=== PATIENT | female | born 1975 | race Caucasian/White ===

== ENCOUNTER 2018-01-06 21:02 | Emergency (ER) | payer MEDICAID ==
[~2018-01-06] VITALS: Ht 152.4 cm; Wt 64.0 kg
[2018-01-07] MEDS ORDERED: MORPHINE SULFATE 4 MG/ML CPJ (NOT FOR IM USE) IV STA (01:45)
[2018-01-07] MEDS ORDERED: DIPHENHYDRAMINE 50MG/ML VIAL IV STA (01:45)
[2018-01-07 02:31] LABS: CLARITY URINE CLEAR (CLEAR); COLOR URINE YELLOW (YELLOW); KETONES URINE NEGATIVE (NEGATIVE); LEUKOCYTE ESTERASE URINE NEGATIVE (NEGATIVE); NITRITE URINE NEGATIVE (NEGATIVE); OCCULT BLOOD URINE NEGATIVE (NEGATIVE); PH URINE 7.5 (4.5-8.0); PROTEIN URINE NEGATIVE (NEGATIVE); SPECIFIC GRAVITY URINE 1.019 (1.005-1.030)
[2018-01-07 02:31] LABS: BASOPHILS % 0.8 % (0.0-2.0); EOSINOPHILS % 2.3 % (0.0-5.0); HEMOGLOBIN. 14.8 g/dL (12.0-16.0); LYMPHOCYTES % 25.6 % (20.0-50.0); MEAN CORPUSCULAR HEMOGLOBIN 32.2 pg (28.0-32.0); MEAN CORPUSCULAR VOLUME 93.1 fL (81.0-99.0); MEAN PLATELET VOLUME 9.5 fl (7.4-10.4); NEUTROPHILS % 64.3 % (40.0-76.0); PLATELET 232 x1000/uL (130-400); RED BLOOD CELL COUNT 4.61 mill/uL (4.2-5.4); RED CELL DISTRIBUTION WIDTH 12.4 % (11.6-14.6)
[2018-01-07 02:36] LABS: CHLORIDE 110 mEq/L (98-107)
[2018-01-07 02:40] LABS: ETHANOL BLOOD < 10 mg/dL
[2018-01-07 02:43] LABS: *AMPHETAMINES SCREEN URINE NEGATIVE (NEGATIVE); *BARBITURATES SCREEN URINE NEGATIVE (NEGATIVE); *BENZODIAZEPINES SCREEN URINE NEGATIVE (NEGATIVE); *COCAINE SCREEN URINE NEGATIVE (NEGATIVE); METHADONE URINE SCREEN NEGATIVE (NEGATIVE)
[2018-01-07 02:44] LABS: CANNABINOID URINE SCREEN NEGATIVE (NEGATIVE); OPIATES URINE SCREEN NEGATIVE (NEGATIVE); PHENCYCLIDINE URINE SCREEN NEGATIVE (NEGATIVE)
[2018-01-07 05:37] VITALS: BP 105/70
== END 2018-01-07 06:24 | disposition home or self-care (01) ==
LOC: ER 23:46
DX: M54.9 Dorsalgia, unspecified (principal); Z79.899 Other long term (current) drug therapy
CPT/HCPCS: 36415; 72131; 80053; 80305; 81003; 83690; 85025; 85610; 96374; 96375; 99285; G0482; J1200; J2270; Z7610

== ENCOUNTER 2018-08-16 17:08 | Emergency (ER) | payer MEDICAID ==
[~2018-08-16] VITALS: Ht 152.4 cm; Wt 65.0 kg
[2018-08-16 17:32] VITALS: BP 115/71
== END 2018-08-16 22:37 | disposition left against medical advice (07) ==
LOC: ER 17:08
DX: S60.419A Abrasion of unspecified finger, initial encounter (principal); X58.XXXA Exposure to other specified factors, initial encounter; Y93.89 Activity, other specified; Y92.89 Other specified places as the place of occurrence of the external cause; Y99.8 Other external cause status; Z53.21 Procedure and treatment not carried out due to patient leaving prior to being seen by health care provider

== ENCOUNTER 2018-10-13 22:42 | Emergency (ER) | payer MEDICAID ==
[~2018-10-13] VITALS: Ht 152.4 cm; Wt 65.6 kg
[2018-10-14] MEDS ORDERED: TETANUS, DIPHTHERIA, PERTUSSIS VAC/PF 0.5ML (>7YR OLD) IM ONE (00:30)
[2018-10-14] MEDS ORDERED: LIDOCAINE HCL 2%/EPINEPHRINE/PF 10 ML VIAL INFIL ONE (00:30)
[2018-10-14 02:35] VITALS: BP 118/72
== END 2018-10-14 02:59 | disposition home or self-care (01) ==
LOC: ER 22:42
DX: S41.112A Laceration without foreign body of left upper arm, initial encounter (principal); W45.8XXA Other foreign body or object entering through skin, initial encounter; Y93.89 Activity, other specified; Y92.89 Other specified places as the place of occurrence of the external cause; Y99.8 Other external cause status
CPT/HCPCS: 12002; 90471; 90715; 99283; J3490; Z7610

== ENCOUNTER 2019-04-03 23:11 | Emergency (ER) | payer SELFPAY ==
[~2019-04-03] VITALS: Ht 154.9 cm; Wt 66.0 kg
[2019-04-04] MEDS ORDERED: GUAIFENESIN/CODEINE 200-20MG/10ML UDC PO ONE (00:30)
[2019-04-04 00:52] LABS: BASOPHILS % 0.9 % (0.0-2.0); EOSINOPHILS % 3.6 % (0.0-5.0); HEMATOCRIT. 40.6 % (36.0-48.0); HEMOGLOBIN. 14.1 g/dL (12.0-16.0); LYMPHOCYTES % 20.1 % (20.0-50.0); MEAN CORPUSCULAR HEMOGLOBIN 32.6 pg (28.0-32.0); MEAN CORPUSCULAR VOLUME 94.1 fL (81.0-99.0); MEAN PLATELET VOLUME 8.5 fl (7.4-10.4); MONOCYTES % 8.3 % (2.0-8.0); NEUTROPHILS % 67.1 % (40.0-76.0); PLATELET 200 x1000/uL (130-400); RED BLOOD CELL COUNT 4.32 mill/uL (4.2-5.4); RED CELL DISTRIBUTION WIDTH 12.8 % (11.6-14.6)
[2019-04-04 01:00] LABS: CHLORIDE 107 mEq/L (98-107)
[2019-04-04] MEDS ORDERED: GUAIFENESIN/CODEINE 100-10MG/5ML UDC PO SCH (01:00)
[2019-04-04 02:30] VITALS: BP 125/84
== END 2019-04-04 04:29 | disposition home or self-care (01) ==
LOC: ER 23:11
DX: J32.9 Chronic sinusitis, unspecified (principal); J06.9 Acute upper respiratory infection, unspecified; J18.9 Pneumonia, unspecified organism; R07.9 Chest pain, unspecified; Z98.890 Other specified postprocedural states; J02.9 Acute pharyngitis, unspecified
CPT/HCPCS: 36415; 71045; 80048; 84484; 93005; 99284

== ENCOUNTER 2019-07-04 15:17 | Emergency (ER) | payer MEDICAID ==
[~2019-07-04] VITALS: Ht 157.5 cm; Wt 65.0 kg
[2019-07-04] MEDS ORDERED: KETOROLAC 30MG/ML VIAL IV STA (17:47)
[2019-07-04] MEDS ORDERED: SODIUM CHLORIDE 0.9% 1,000 ML IV ONE (17:47)
[2019-07-04 18:08] LABS: CHLORIDE 107 mEq/L (98-107)
[2019-07-04 18:09] LABS: HEMATOCRIT. 39.4 % (36.0-48.0); HEMOGLOBIN. 13.8 g/dL (12.0-16.0); MEAN CORPUSCULAR HEMOGLOBIN 32.8 pg (28.0-32.0); MEAN CORPUSCULAR VOLUME 93.6 fL (81.0-99.0); MEAN PLATELET VOLUME 9.1 fl (7.4-10.4); PLATELET 193 x1000/uL (130-400); RED BLOOD CELL COUNT 4.21 mill/uL (4.2-5.4); RED CELL DISTRIBUTION WIDTH 12.2 % (11.6-14.6)
[2019-07-04 18:47] LABS: PLATELET ESTIMATE NORMAL
[2019-07-04 20:29] VITALS: BP 110/67
== END 2019-07-04 20:30 | disposition home or self-care (01) ==
LOC: ER 15:23
DX: R07.89 Other chest pain (principal); R50.9 Fever, unspecified; R51 Headache; R05 Cough; J02.9 Acute pharyngitis, unspecified; Z98.890 Other specified postprocedural states
CPT/HCPCS: 36415; 71045; 80053; 81025; 84484; 85025; 87804; 93005; 96374; 99284; J1885; J7030

== ENCOUNTER 2019-07-06 16:50 | Emergency (ER) | payer MEDICAID ==
[~2019-07-06] VITALS: Ht 154.9 cm; Wt 65.0 kg
[2019-07-06] MEDS ORDERED: KETOROLAC 60MG/2ML VIAL IM ONE (18:45)
[2019-07-06 20:55] VITALS: BP 134/74
== END 2019-07-06 20:58 | disposition home or self-care (01) ==
LOC: ER 16:50
DX: B34.9 Viral infection, unspecified (principal); F41.9 Anxiety disorder, unspecified
CPT/HCPCS: 81025; 96372; 99283; J1885

== ENCOUNTER 2020-09-19 13:37 | Emergency (ER) | payer MEDICAID ==
[~2020-09-19] VITALS: Ht 165.1 cm; Wt 65.0 kg
[2020-09-19] MEDS ORDERED: SODIUM CHLORIDE 0.9% 1,000 ML IV NR (14:15)
[2020-09-19] MEDS ORDERED: MAGNESIUM/ALUMINUM HYDROXIDE/SIMETHICONE 30ML UDC PO NR (14:15)
[2020-09-19 14:46] LABS: BASOPHILS % 0.4 % (0.0-2.0); EOSINOPHILS % 0.8 % (0.0-5.0); HEMATOCRIT. 44.4 % (36.0-48.0); HEMOGLOBIN. 15.1 g/dL (12.0-16.0); LYMPHOCYTES % 7.7 % (20.0-50.0); MEAN CORPUSCULAR HEMOGLOBIN 32.1 pg (28.0-32.0); MEAN CORPUSCULAR VOLUME 94.4 fL (81.0-99.0); MEAN PLATELET VOLUME 9.1 fl (7.4-10.4); MONOCYTES % 3.5 % (2.0-8.0); NEUTROPHILS % 87.6 % (40.0-76.0); PLATELET 245 x1000/uL (130-400); RED BLOOD CELL COUNT 4.71 mill/uL (4.2-5.4); RED CELL DISTRIBUTION WIDTH 12.4 % (11.6-14.6)
[2020-09-19 14:50] LABS: CHLORIDE 105 mEq/L (98-107)
[2020-09-19 14:52] LABS: PROTHROMBIN TIME 10.9 sec (9.6-11.0)
[2020-09-19 14:55] LABS: CLARITY URINE CLEAR (CLEAR); COLOR URINE YELLOW (YELLOW); KETONES URINE NEGATIVE (NEGATIVE); LEUKOCYTE ESTERASE URINE NEGATIVE (NEGATIVE); NITRITE URINE NEGATIVE (NEGATIVE); OCCULT BLOOD URINE NEGATIVE (NEGATIVE); PROTEIN URINE NEGATIVE (NEGATIVE); SPECIFIC GRAVITY URINE 1.023 (1.005-1.030); UROBILINOGEN URINE 0.2 E.U./dL (0.2-1.0)
[2020-09-19] MEDS ORDERED: MORPHINE SULFATE 4 MG/ML CPJ (NOT FOR IM USE) IV NR (16:30)
[2020-09-19] MEDS ORDERED: ONDANSETRON HCL 4MG/2ML INJ IV NR (16:30)
[2020-09-19] MEDS ORDERED: ONDA4TAB5 MT (16:52)
[2020-09-19] MEDS ORDERED: FAMO-135 MT (16:52)
[2020-09-19 17:07] VITALS: BP 115/62
== END 2020-09-19 17:11 | disposition home or self-care (01) ==
LOC: ER 13:37
DX: R11.10 Vomiting, unspecified (principal); R10.13 Epigastric pain; F41.9 Anxiety disorder, unspecified; Z90.49 Acquired absence of other specified parts of digestive tract
CPT/HCPCS: 36415; 70450; 76705; 80053; 81003; 81025; 83690; 85025; 85610; 93005; 96361; 96374; 96375; 99285; J2270; J2405; Z7610

== ENCOUNTER 2023-01-03 15:06 | Emergency (ER) | payer MEDICAID ==
[~2023-01-03] VITALS: Ht 165.1 cm; Wt 82.0 kg
[~2023-01-03 15:06] MED LIST: FAMO-135 MT; ONDA4TAB5 MT
[2023-01-03 15:08] VITALS: BP 117/76; PULSE 86; RESP 18; TEMP 98.3; O2SAT 98
[2023-01-03] MEDS ORDERED: IBUPROFEN 800MG TABLET PO ONE (17:00)
[2023-01-03] MEDS ORDERED: IBUPROFEN 400MG TABLET PO NR (17:15)
== END 2023-01-03 17:39 | disposition home or self-care (01) ==
LOC: ER 15:06
DX: R07.89 Other chest pain (principal); R06.02 Shortness of breath; F41.9 Anxiety disorder, unspecified; Z98.890 Other specified postprocedural states; Z90.49 Acquired absence of other specified parts of digestive tract
CPT/HCPCS: 71045; 93005; 99283

== ENCOUNTER 2023-08-20 13:24 | Emergency (ER) | payer BC, MEDICAID ==
[~2023-08-20] VITALS: Ht 152.4 cm; Wt 73.0 kg
[2023-08-20 13:31] VITALS: O2SAT 99
[2023-08-20] MEDS: TETANUS, DIPHTHERIA, PERTUSSIS VAC/PF 0.5ML (>10YR OLD) IM ONE (15:45)
[2023-08-20 15:46] VITALS: BP 113/71
[2023-08-20] MEDS: HYDROCODONE/ACETAMINOPHEN 5/325MG TABLET PO ONE (15:46)
[2023-08-20] MEDS: BACITRACIN ZINC OINT UDPKT TOP ONE (15:47)
[2023-08-20] MEDS: RABIES VAC,PF CHICK-EMB CELL 2.5 UNITS/ML IM ONE (15:47)
[2023-08-20] MEDS ORDERED: AMOX1TAB16 MT (15:55)
[2023-08-20 16:47] VITALS: PULSE 72; RESP 16; TEMP 98.2
== END 2023-08-20 16:48 | disposition home or self-care (01) ==
LOC: ER 13:24
DX: S51.812A Laceration without foreign body of left forearm, initial encounter (principal); S51.811A Laceration without foreign body of right forearm, initial encounter; Z90.49 Acquired absence of other specified parts of digestive tract; Z98.890 Other specified postprocedural states; W54.0XXA Bitten by dog, initial encounter; Y93.89 Activity, other specified; Y92.89 Other specified places as the place of occurrence of the external cause; Y99.8 Other external cause status
CPT/HCPCS: 81025; 73090; 90715; 90675; 90471; 99284; Z7610